=== PATIENT | male | born 1955 | race African-American/Black ===

== ENCOUNTER 2024-02-23 18:10 | Emergency (ER) | payer OTHER ==
[~2024-02-23] VITALS: Ht 182.9 cm; Wt 90.0 kg
[2024-02-23 18:13] VITALS: O2SAT 98
[2024-02-23] MEDS ORDERED: KETOROLAC 30MG/ML VIAL IM ONE (19:15)
[2024-02-23] MEDS ORDERED: LIDO700A15 TP (19:19)
[2024-02-23] MEDS ORDERED: METH-653 MT (19:19)
[2024-02-23] MEDS ORDERED: IBUP-2029 MT (19:19)
[2024-02-23] MEDS: KETOROLAC 30MG/ML VIAL IM NR (19:45)
[2024-02-23 20:00] VITALS: BP 118/77; PULSE 86; RESP 17; TEMP 36.66960
== END 2024-02-23 20:32 | disposition home or self-care (01) ==
LOC: ER 18:19
DX: M79.18 Myalgia, other site (principal); V98.8XXA Other specified transport accidents, initial encounter; Y93.89 Activity, other specified; Y92.89 Other specified places as the place of occurrence of the external cause; Y99.8 Other external cause status
CPT/HCPCS: 99283; J1885